=== PATIENT | female | born 1970 | race Caucasian/White ===

== ENCOUNTER 2017-01-03 18:20 | Emergency (ER) | payer OTHER ==
[~2017-01-03] VITALS: Ht 160 cm; Wt 70.3 kg
[2017-01-03] MEDS ORDERED: BACTRIM DS TAB1 EACH PO (18:37)
[2017-01-03] MEDS ORDERED: MOBIC15 MG PO (18:37)
[2017-01-03] MEDS ORDERED: ULTRAM 50MG TAB50 MG PO (18:48)
[2017-01-03 18:57] VITALS: BP 139/84
== END 2017-01-03 18:58 | disposition home or self-care (01) ==
LOC: ER 18:20
DX: L73.9 Follicular disorder, unspecified (principal)

== ENCOUNTER 2017-01-09 16:46 | Emergency (ER) | payer OTHER ==
[~2017-01-09] VITALS: Ht 162.6 cm; Wt 70.3 kg
[~2017-01-09 16:46] MED LIST: BACTRIM DS TAB1 EACH PO; MOBIC15 MG PO; ULTRAM 50MG TAB50 MG PO
[2017-01-09 16:48] VITALS: BP 150/96
[2017-01-09] MEDS ORDERED: CLEOCIN HCL150 MG PO (17:13)
[2017-01-09] MEDS ORDERED: NORCO 5-325 TA1 EACH PO (17:32)
== END 2017-01-09 17:40 | disposition home or self-care (01) ==
LOC: ER 16:46
DX: L02.211 Cutaneous abscess of abdominal wall (principal); L73.9 Follicular disorder, unspecified; Z98.890 Other specified postprocedural states

== ENCOUNTER 2019-12-09 14:38 | Emergency (ER) | payer OTHER ==
[~2019-12-09] VITALS: Ht 152.4 cm; Wt 56.7 kg
[~2019-12-09 14:38] MED LIST changes: +CLEOCIN HCL150 MG PO; +NORCO 5-325 TA1 EACH PO
[2019-12-09] MEDS ORDERED: TIZANIDINE4 MG/1 TA1 PO (15:35)
[2019-12-09] MEDS ORDERED: ALPRAZOLAM1 MG PO (15:35)
[2019-12-09] MEDS ORDERED: CYCLOBENZAPRINE10 MG PO (15:35)
[2019-12-09] MEDS ORDERED: NORCO 5-325 TA1 EAC2 PO (17:25)
[2019-12-09] MEDS ORDERED: CYCLOBENZAPRINE5 MG PO (17:25)
[2019-12-09 17:47] VITALS: BP 143/96
== END 2019-12-09 17:48 | disposition home or self-care (01) ==
LOC: ER 14:38
DX: M54.2 Cervicalgia (principal); M25.512 Pain in left shoulder; M54.6 Pain in thoracic spine; Z98.890 Other specified postprocedural states; Z79.899 Other long term (current) drug therapy; X50.0XXA Overexertion from strenuous movement or load, initial encounter; Y93.89 Activity, other specified; Y92.89 Other specified places as the place of occurrence of the external cause; Y99.8 Other external cause status

== ENCOUNTER 2020-04-09 02:56 | Emergency (ER) | payer OTHER ==
[~2020-04-09] VITALS: Ht 162.6 cm; Wt 70.3 kg
[~2020-04-09 02:56] MED LIST changes: +ALPRAZOLAM1 MG PO; +CYCLOBENZAPRINE10 MG PO; +CYCLOBENZAPRINE5 MG PO; +NORCO 5-325 TA1 EAC2 PO; +TIZANIDINE4 MG/1 TA1 PO
[2020-04-09] MEDS ORDERED: AMITRIPTYLINE H25 M2 PO (03:06)
[2020-04-09] MEDS ORDERED: CELEXA 20 MG TA20 MG PO (03:06)
[2020-04-09] MEDS ORDERED: NORVASC 2.5 MG2.5 M1 PO (03:07)
[2020-04-09] MEDS ORDERED: NAPROSYN500 MG PO (04:07)
[2020-04-09 04:41] VITALS: BP 129/87
== END 2020-04-09 04:43 | disposition home or self-care (01) ==
LOC: ER 02:56
DX: S46.812A Strain of other muscles, fascia and tendons at shoulder and upper arm level, left arm, initial encounter (principal); M62.838 Other muscle spasm; I10 Essential (primary) hypertension; Z79.899 Other long term (current) drug therapy; Y04.2XXA Assault by strike against or bumped into by another person, initial encounter; Y93.89 Activity, other specified; Y92.89 Other specified places as the place of occurrence of the external cause; Y99.8 Other external cause status

== ENCOUNTER 2020-06-15 22:08 | Emergency (ER) | payer OTHER ==
[~2020-06-15 22:08] MED LIST changes: +AMITRIPTYLINE H25 M2 PO; +CELEXA 20 MG TA20 MG PO; +NAPROSYN500 MG PO; +NORVASC 2.5 MG2.5 M1 PO
[2020-06-15 22:10] VITALS: BP 129/80
== END 2020-06-15 22:35 | disposition left against medical advice (07) ==
LOC: ER 22:08
DX: F41.9 Anxiety disorder, unspecified (principal); I10 Essential (primary) hypertension; Z79.899 Other long term (current) drug therapy